=== PATIENT | male | born 1965 | race American Indian/Alaskan Native ===

== ENCOUNTER 2024-02-14 11:57 | Emergency (ER) | payer OTHER ==
[~2024-02-14] VITALS: Ht 167.6 cm; Wt 53.5 kg
[2024-02-14 12:21] LABS: BASOPHILS 1.2 % (0-2); EOSINOPHILS 1.4 % (0-6); HEMATOCRIT 38.1 % (35.0-50.0); HEMOGLOBIN 12.9 g/dL (12.0-18.0); LYMPHOCYTES 23.2 % (24-44); MCH 31.5 (27-36); MCHC 33.9 g/dl (30-36); MCV 92.8 fl (81-99); NEUTROPHILS 66.2 % (39-80); PLATELET COUNT 280 K/uL (140-440); RBC 4.11 M/ul (4.3-5.7); RDW 13.8 (10.5-15.0)
[2024-02-14] MEDS ORDERED: COREG3.125 MG PO (12:31)
[2024-02-14] MEDS ORDERED: CLOPIDOGREL75 MG PO (12:31)
[2024-02-14] MEDS ORDERED: LASIX20 MG PO (12:31)
[2024-02-14] MEDS ORDERED: IPRATROPIU0.2 MG/1 M INH (12:32)
[2024-02-14] MEDS ORDERED: PROTONIX40 M1 PO (12:33)
[2024-02-14] MEDS ORDERED: JARDIANCE10 MG PO (12:33)
[2024-02-14] MEDS ORDERED: ALDACTONE25 MG PO (12:33)
[2024-02-14] MEDS ORDERED: NITROSTAT0.4 MG SL (12:33)
[2024-02-14] MEDS ORDERED: ZESTRIL10 MG PO (12:33)
[2024-02-14 12:39] LABS: ALBUMIN/GLOBULIN RATIO 0.86 (1.1-2.4); ANION GAP 10.2 (7-21); BILIRUBIN, TOTAL 0.3 ng/dL (0.2-1.0); BUN/CREATININE RATIO 14.97 (6.0-28.6); CALCIUM 8.6 mg/dL (8.5-10.1); CREATININE, SERUM 2.07 mg/dL (0.70-1.30); MAGNESIUM 1.9 mg/dL (1.8-2.4); POTASSIUM 4.2 mmol/L (3.5-5.1); PROTEIN, TOTAL 6.5 g/dL (6.4-8.2)
[2024-02-14] MEDS ORDERED: SODIUM CHLORIDE 0.9% 1,000 ML IV PRN (12:45)
[2024-02-14] MEDS ORDERED: KETOROLAC TROMETHAMINE 15 MG/ML VIAL IV ONE (13:30)
[2024-02-14 16:39] VITALS: BP 106/78
--- NOTE | 2024-02-14 22:23 | EKG ---
[facility] [address] [facility] [place] [address] Signed Normal sinus rhythm T wave abnormality, consider inferolateral ischemia Abnormal ECG No previous ECGs available Confirmed by Quincy Nicole MD () on 02/14/2024 10:23:00 PM Electronically Signed By: QUINCY NICOLE MD 02/14/242222 PATIENT NAME: CHRIS RAPHAEL Electrocardiogram DATE OF : 69 PHYSICIAN: QUINCY NICOLE MD REPORT #: [id number] REPORT IS CONFIDENTIAL AND NOT TO BE RELEASED WITHOUT AUTHORIZATION
--- NOTE | 2024-02-14 22:24 | EKG ---
[facility] [address] [facility] [place] [address] Signed Normal sinus rhythm T wave abnormality, consider inferolateral ischemia Abnormal ECG When compared with ECG of 14-FEB-2024 11:58, T wave inversion more evident in Inferior leads Confirmed by Quincy Nicole MD () on 02/14/2024 10:24:26 PM Electronically Signed By: QUINCY NICOLE MD 02/14/242223 PATIENT NAME: CHRIS RAPHAEL Electrocardiogram DATE OF : 69 PHYSICIAN: QUINCY NICOLE MD REPORT #: [id number] REPORT IS CONFIDENTIAL AND NOT TO BE RELEASED WITHOUT AUTHORIZATION
== END 2024-02-14 16:41 | disposition home or self-care (01) ==
LOC: ED 11:57
PROVIDERS: Emergency Medicine
DX: R55 Syncope and collapse (principal); I10 Essential (primary) hypertension; J44.9 Chronic obstructive pulmonary disease, unspecified; E78.5 Hyperlipidemia, unspecified; Z88.0 Allergy status to penicillin; Z88.5 Allergy status to narcotic agent; Z79.899 Other long term (current) drug therapy
CPT/HCPCS: 36415; 71045; 80053; 83735; 84484; 85025; 93005; 93010; 96374; 99284-25; J1885; J7030

== ENCOUNTER 2024-11-07 11:23 | Inpatient (IN) | payer OTHER ==
[~2024-11-07] VITALS: Ht 167.6 cm; Wt 55.7 kg
[~2024-11-07 11:23] MED LIST: ALDACTONE25 MG PO; CLOPIDOGREL75 MG PO; COREG6.25 MG PO; IPRATROPIU0.2 MG/1 M INH; JARDIANCE10 MG PO; LASIX40 MG PO; NITROSTAT0.4 MG SL; OMEPRAZOLE20 MG PO; ZESTRIL10 MG PO
[2024-11-07 11:53] LABS: EOSINOPHILS 0.4 % (0-6); HEMATOCRIT 32.5 % (35.0-50.0); HEMOGLOBIN 10.9 g/dL (12.0-18.0); LYMPHOCYTES 14.8 % (24-44); MCHC 33.5 g/dl (30-36); MCV 86.5 fl (81-99); MONOCYTES 8.1 % (0-12); NEUTROPHILS 75.7 % (39-80); PLATELET COUNT 222 K/uL (140-440); RBC 3.76 M/ul (4.3-5.7)
[2024-11-07 12:17] LABS: ALBUMIN 2.5 g/dL (3.4-5.0); ALBUMIN/GLOBULIN RATIO 0.6 (1.1-2.4); ANION GAP 13.9 (7-21); BILIRUBIN, TOTAL 0.6 mg/dL (0.2-1.0); BUN/CREATININE RATIO 18.71 (6.0-28.6); CREATININE, SERUM 1.71 mg/dL (0.70-1.30); POTASSIUM 3.9 mmol/L (3.5-5.1); PROTEIN, TOTAL 6.7 g/dL (6.4-8.2)
[2024-11-07] MEDS ORDERED: FUROSEMIDE 100 MG/10 ML VIAL IV ONE (12:45)
[2024-11-07] MEDS ORDERED: methylPREDNISolone SOD SUCC 40 MG/ML VIAL IV SCH (13:30)
[2024-11-07] MEDS ORDERED: ondansetron HCL 4 MG/2 ML VIAL IV PRN (13:30)
[2024-11-07] MEDS ORDERED: ACETAMINOPHEN 325 MG TAB PO PRN (13:30)
[2024-11-07] MEDS ORDERED: NICOTINE 21 MG/24 HR 1 EA TDSY TD SCH (13:34)
--- NOTE | 2024-11-07 14:32 | NUR ---
PT REPORT RECIEVED FROM ER, RN. PT THEN TRASPORTED VIA STRETCHER TO ROOM 113 ON RA. PT THEN WAS ABLE TO MOVE FROM STRETCHER TO BED WITH NO ASSISTANCE. PT WAS ABLE TO REPOSITION SELF AND IS CURRENTLY IN BED AT THIS TIME. PT HAS NO CONCERNS AT THIS TIME, DENIES CHEST PAIN, AND STATES SOB HAS DECREASED AT THIS TIME CALL LIGHT IN REACH.
[2024-11-07 14:35] VITALS: BP 118/78
--- NOTE | 2024-11-07 17:15 | NUR ---
PT COVID TEST TAKEN, PT AGREEABLE AND TOLERATED WELL. PT IS SITTING UP IN BED AT THIS TIME WITH NO CURRENT COCNERNS AT THIS TIME CALL LIGHT IN REACH.
[2024-11-07 17:33] LABS: CORONAVIRUS COVID-19 AG NEGATIVE (NEGATIVE); INFLUENZA A AG NEGATIVE (NEGATIVE); INFLUENZA B AG NEGATIVE (NEGATIVE)
[2024-11-07 18:04] VITALS: BP 109/70
--- NOTE | 2024-11-07 18:24 | NUR ---
PT SITTING UP IN BED, PT REPORTED RIGHT SIDED RIB PAIN, PT LUNG SOUNDS WERE EQUAL ON BOTH SIDES, PT DID BECOME TACHYPNIC DURING THIS EPISODE THAT DID RESOLVE SHORTLY, PT SAYS IT FEELS MUSCULAR. MD BURGOS WAS CONTACTED AND GAVE VERBAL ORDER FOR MAG, BNP, AND K+, ALONG WITH LIDOCANE PATCH AND 1000mg OF TYLONOL. PT HAS NO OTHER COCNERNS AT THIS TIME VITAL SIGNS WERE STABLE DURING EPISODE.
[2024-11-07] MEDS ORDERED: LIDOCAINE HCL 4% 1 EACH PATCH TD SCH (18:30)
[2024-11-07] MEDS ORDERED: ACETAMINOPHEN 500 MG TAB PO ONE (18:30)
[2024-11-07 18:32] VITALS: BP 109/70
[2024-11-07 18:38] VITALS: BP 104/76
[2024-11-07 18:57] LABS: MAGNESIUM 1.8 mg/dL (1.8-2.4)
[2024-11-07] MEDS ORDERED: ALBUTEROL SULFATE 0.083% 3 ML VIAL INH PRN (19:15)
[2024-11-07] MEDS ORDERED: MAGNESIUM SULFATE 2 GM/50 ML BAG IV ONE (19:45)
[2024-11-07] MEDS ORDERED: POTASSIUM CHLORIDE 10 MEQ TABCR PO ONE (19:45)
[2024-11-07] MEDS ORDERED: IPRATROPIUM BROMIDE 2.5 ML VIAL INH SCH (20:00)
--- NOTE | 2024-11-07 20:11 | NUR ---
CHRIS IS A CURRENT SMOKER. HIS IS ABLE TO USE THE CORNET LEVEL W/O DIFFICULTY OR INCREASED S/S OF RESPIRATORY DISTRESS. CHRIS IS CURRENTLY ON ROOM AIR.
[2024-11-07 20:19] VITALS: BP 116/74
[2024-11-07 20:20] VITALS: BP 116/74
--- NOTE | 2024-11-07 20:32 | NUR ---
sandwich box given on requests, ate 100%. on room air, RT in room, cpox on at bedside and coronot used and return demonstration done for RT, neb given. calm, cooperative, received po K and IV Mag infusing., Bed alrm on for helena
[2024-11-07] MEDS ORDERED: LIDOCAINE PATCH REMOVAL 1 EA TD SCH (21:00)
--- NOTE | 2024-11-07 23:11 | NUR ---
AWAKE, WATCHNG TV, NO C/OPAIN, VOIDING QS YELLOW URINE, USING URINAL. ON ROOM AIR, CPOX IN PLCE
[2024-11-08] VITALS (9 sets, daily range): BP systolic 108–130; BP diastolic 70–85
--- NOTE | 2024-11-08 01:09 | NUR ---
RESTING, EYES CLOSED, NO SS/X DISTRESS, CPOX ON AT BEDSIDE. EYES CLOSED, REPOSITIONS SELF IN BED, VOIDING QS YELLOW URINE, USES URINAL
--- NOTE | 2024-11-08 02:31 | NUR ---
AWAKENS EASILY. ON ROOM AIR, CPPOX AT BEDSIDE. CONTINUES TO DECLINE TO HAVE LIDOCAINE PATCH REMOVED FROM R RIB AREA. "I FEEL BETTER, BUT IM AFRAID THAT IF I TAKE IT OFF IT WILL START HURTING AGAIN". PUDING AND JUICE GIVEN ON REQUESTS. REPOSITIONS SELF INBED, COOPERATIVE WITH ASSESSMENT.
--- NOTE | 2024-11-08 03:27 | NUR ---
RESTING, EYES CLOSED, NO S/SX DISTRESS ON ROOM AIR, CPOX AT BEDSIDE, SATS WNL. TURNS AND REPOSITIONS SELF IN BED
[2024-11-08 05:26] LABS: BASOPHILS 0.2 % (0-2); HEMOGLOBIN 12.9 g/dL (12.0-18.0); LYMPHOCYTES 10.3 % (24-44); MCH 28.8 (27-36); MCHC 33.9 g/dl (30-36); MCV 84.9 fl (81-99); MONOCYTES 2.2 % (0-12); NEUTROPHILS 87.3 % (39-80); PLATELET COUNT 251 K/uL (140-440); RBC 4.47 M/ul (4.3-5.7)
[2024-11-08 05:39] LABS: ANION GAP 12.8 (7-21); BUN/CREATININE RATIO 21.69 (6.0-28.6); CALCIUM 8.6 mg/dL (8.5-10.1); CREATININE, SERUM 1.89 mg/dL (0.70-1.30); MAGNESIUM 2.4 mg/dL (1.8-2.4); POTASSIUM 3.8 mmol/L (3.5-5.1)
--- NOTE | 2024-11-08 05:42 | NUR ---
AWAKENS EASILY, NO C/O SX DISTRESS, ON ROOM AIR. CPOX AT BEDSIDE. NO COUGH AT THIST STACY, SLIGHT SOB WITH EXERTION WHEN TALKING AND REPOSITIONING, SATS NO HCANGES 98-100%.TURNS AND REPOSITIONS SELF IN BED. 55.7KG BED
--- NOTE | 2024-11-08 07:00 | NUR ---
Pt report received from ESTHER Frias. Pt is currently "ambulating" the hallway in his wheelchair. Pt states he "feels a little tight" and reports some discomfort in his ribs on both sides. States he still has the lidocaine patch on his right side and agrees to try hot packs at this time, which were provided to him. Pt is back in his bed at this time, call light in reach.
--- NOTE | 2024-11-08 07:43 | NUR ---
HOURLY ROUNDING. PATIENT WAS SEEN DOING 3 LAPS AROUND THE NURSE STATIONE IN WHEEL CHAIR (PERSONAL) CHAIR. PATIENT THEN WENT IN HIS ROOM, AND TRANSFERED HIMSELF FROM WHEEL CHAIR TO BED. NO ASSISTANCE WAS NEEDED. PATIENT REQUESTED ORANGE JUICE. ORANGE JUICE HAS BEEN GIVEN
[2024-11-08] MEDS ORDERED: ALBUTEROL/IPRATROPIUM 3 ML NEB INH SCH (08:00)
--- NOTE | 2024-11-08 08:58 | NUR ---
UR CLINICAL REVIEW: [facility] [place] [facility] REVIEW MEETS INPT FOR CHF BASIC DMAP INPT 11/07/24 @ 1326 ORDER MATCHES REG NO AUTH REQUIRED PER DMAP GUIDELINES DISCHARGE TO HOME WHEN STABLE ANTICIPATE DC IN 24-48 HRS
[2024-11-08] MEDS ORDERED: PANTOPRAZOLE SODIUM 40 MG TABEC PO SCH (09:00)
[2024-11-08] MEDS ORDERED: ENOXAPARIN SODIUM 40 MG/0.4 ML SYR SUB-Q SCH (09:00)
[2024-11-08] MEDS ORDERED: ALBUTEROL2.5 MG/3 M INH (09:03)
[2024-11-08] MEDS ORDERED: SYMBICORT 80-10.2 GM INH (09:03)
[2024-11-08] MEDS ORDERED: ROSUVASTATIN CA20 MG PO (09:07)
[2024-11-08] MEDS ORDERED: NEURONTIN100 MG PO (09:08)
[2024-11-08] MEDS ORDERED: ADULT ASPIRIN R81 MG PO (09:09)
--- NOTE | 2024-11-08 09:55 | NUR ---
MED REC COMPLETE
[2024-11-08] MEDS ORDERED: ASPIRIN 81 MG TABEC PO SCH (09:59)
[2024-11-08] MEDS ORDERED: FUROSEMIDE 100 MG/10 ML VIAL IV ONE (10:00)
[2024-11-08] MEDS ORDERED: CYCLOBENZAPRINE HCL 10 MG TAB PO PRN (10:00)
[2024-11-08] MEDS ORDERED: POTASSIUM CHLORIDE 10 MEQ TABCR PO ONE (10:00)
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
--- NOTE | 2024-11-08 10:36 | NUR ---
PATIENT CALLED AND WANTED TO GET BACK INTO BED. THIS TIRE BUILDER HEAVY SERVICE IN TO ASSIST. PATIENT TRANSFERED TO BED FROM CHAIR, SBA PIVOT TRANSFER. CALL LIGHT IN REACH. BED ALARM ON. NO FURTHER NEEDS AT THIS TIME.
--- NOTE | 2024-11-08 11:48 | NUR ---
HOURLY ROUNDING. PATIENT TRANSFERED FROM WHEEL CHAIR TO BED. HE MENTONED NEEDING ASSISTANCE TO DO PAPER WORK THAT WAS GIVEN FROM CASE MANAGMENT, CASE MANAGEMENT HAS BEEN ALERTED. NO FURTHER REQUEST FROM PATIENT AT THIS TIME
[2024-11-08] MEDS ORDERED: PHARMACY RENAL DOSE ADJUSTMENT 1 DOSE MISC PO SCH (12:00)
--- NOTE | 2024-11-08 13:46 | NUR ---
URINAL EMPTIED FOR 250ML OF URINE.
--- NOTE | 2024-11-08 14:00 | EKG ---
[facility] [address] [place] [address] Signed Normal sinus rhythm Left anterior fascicular block Minimal voltage criteria for LVH, may be normal variant ( [place] product ) Nonspecific T wave abnormality Prolonged QT Abnormal ECG When compared with ECG of 14-FEB-2024 13:19, Left anterior fascicular block is now present T wave inversion no longer evident in Inferior leads Nonspecific T wave abnormality has replaced inverted T waves in Lateral leads QT has lengthened Confirmed by Pao Mcneill MD ([id number]) on 11/08/2024 2:00:07 PM Electronically Signed By: PAO MCNEILL MD 11/08/24 1400 PATIENT NAME: CHRIS RAPHAEL Electrocardiogram DATE OF : 69 PHYSICIAN: PAO MCNEILL MD REPORT #: [id number] REPORT IS CONFIDENTIAL AND NOT TO BE RELEASED WITHOUT AUTHORIZATION
--- NOTE | 2024-11-08 15:15 | NUR ---
VISITED DURING SPIRITUAL CARE ROUNDS. PT APPEARED TO BE SLEEPING. DID NOT DISTURB. PROVIDED PRAYER.
--- NOTE | 2024-11-08 19:05 | NUR ---
REPORT RECEIVED FROM ALFRED SANTANA. pt RESTING IN THE BED. BOARD UPDATED. pt DENIES ANY OTHER NEEDS AT THIS TIME. CALL LIGHT WITHIN REACH.
[2024-11-08] MEDS ORDERED: LORazepam 1 MG TAB PO PRN (21:15)
--- NOTE | 2024-11-08 21:15 | NUR ---
ASSESSMENT DONE. LUNG SOUNDS CLEAR. SHEDULED MEDS ADMINISTERED. SNACK PROVIDED. WATER REFESHED. IV ASSESSED, WNL. pt DENIES ANY OTHER NEEDS AT THIS TIME. CALL LIGHT WITHIN REACH.
--- NOTE | 2024-11-08 23:26 | NUR ---
pt RESTING IN THE BED WITH EYES CLOSED. RR EVEN AND UNLABORED. CALL LIGHT WITHIN REACH.
--- NOTE | 2024-11-09 01:10 | NUR ---
pt RESTING IN THE BED WITH EYES CLOSED. RR EVEN AND UNLABORED. CALL LIGHT WITHIN REACH.
--- NOTE | 2024-11-09 03:01 | NUR ---
pt RESTING IN THE BED WITH EYES CLOSED. RR EVEN AND UNLABORED. CALL LIGHT WITHIN REACH.
[2024-11-09 05:12] VITALS: BP 125/82
[2024-11-09 05:15] VITALS: BP 125/82
[2024-11-09 05:20] LABS: BASOPHILS 0.1 % (0-2); HEMATOCRIT 38.3 % (35.0-50.0); LYMPHOCYTES 3.5 % (24-44); MCH 28.5 (27-36); MCHC 33.8 g/dl (30-36); MCV 84.3 fl (81-99); MONOCYTES 2.1 % (0-12); NEUTROPHILS 94.3 % (39-80); PLATELET COUNT 309 K/uL (140-440); RBC 4.54 M/ul (4.3-5.7); RDW 14.7 (10.5-15.0)
--- NOTE | 2024-11-09 05:29 | NUR ---
IN RM TO DO ASSESSMENT AND VITAL SIGNS. WATER REFRESHED. LUNG SOUNDS ARE CLEAR. pt DENIES ANY OTHER NEEDS AT THIS TIME. CALL LIGHT WITHIN REACH.
[2024-11-09 05:42] LABS: ANION GAP 11.4 (7-21); BUN/CREATININE RATIO 23.68 (6.0-28.6); CALCIUM 8.3 mg/dL (8.5-10.1); CREATININE, SERUM 1.9 mg/dL (0.70-1.30); MAGNESIUM 2.1 mg/dL (1.8-2.4); POTASSIUM 4.4 mmol/L (3.5-5.1)
--- NOTE | 2024-11-09 07:15 | NUR ---
MORNING REPORT RECIEVED FROM ESTHER MEJIA. PT LAYING IN BED WITH EYES CLSOED CHEST RISE EQUAL BILAT. PT HAS CALL LIGHT IN REACH AT THIS TIME.
--- NOTE | 2024-11-09 08:24 | NUR ---
PT SITTING UP IN WC EATING BREAKFAST. PT RECIEVED MORNING MEDICATIONS. PT WAS THEN TAKEN BY IMAGING FOR CHEST XRAY. PT SHALL RETURN TO ROOM ONCE FINISHED.
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
[2024-11-09] MEDS ORDERED: PREDNISONE20 MG PO (09:28)
--- NOTE | 2024-11-09 09:49 | NUR ---
PT RETURNED FROM IMAGING AND IS CURRENTLY IN ROOM IN WC. PT ASKED IF HE COULD ROLL AROUND THE MEDSURGE FLOOR IN HIS WC AND WAS TOLD THATS FINE. PT DC PAPER WORK IN PROGRESS AT THIS TIME. PT HAS NO COCNERNS.
--- NOTE | 2024-11-09 10:31 | NUR ---
PT DC INSTRUCTIONS AND EDUCATION GIVEN VERBALLY TO PT. PT HAS NO CURRENT CONCERNS AT THIS TIME AND ALL QUESTIONS ANSWERED AT THIS TIME. PT IS CURRENTLY SITTING IN WC WITH CLERICAL ASSISTANT PRESENT IN ROOM. PT PAPER WORK GIVEN AND PLACED IN GREEN Bee There BAG.
--- NOTE | 2024-11-09 10:38 | NUR ---
SPOKE WITH CINDY AT WHEELCHAIR VAN AND SCHEDULED TO PICK PATIENT UP IN 20 MINUTES TO TRANSPORT TO HOME.
[2024-11-09 10:39] VITALS: BP 137/89
== END 2024-11-09 10:40 | disposition home or self-care (01) | DRG 190 ==
LOC: ED 11:23 → MS 13:26
PROVIDERS: Emergency Medicine; ADMIT Student in an Organized Health Care Education/Training Program; ATTEND Student in an Organized Health Care Education/Training Program
DX: J44.1 Chronic obstructive pulmonary disease with (acute) exacerbation (principal); I50.23 Acute on chronic systolic (congestive) heart failure; I11.0 Hypertensive heart disease with heart failure; I25.10 Atherosclerotic heart disease of native coronary artery without angina pectoris; K21.9 Gastro-esophageal reflux disease without esophagitis; F17.210 Nicotine dependence, cigarettes, uncomplicated; I73.9 Peripheral vascular disease, unspecified; F12.90 Cannabis use, unspecified, uncomplicated; Z95.0 Presence of cardiac pacemaker; Z88.0 Allergy status to penicillin; Z89.611 Acquired absence of right leg above knee; I25.2 Old myocardial infarction; Z79.899 Other long term (current) drug therapy; Z79.811 Long term (current) use of aromatase inhibitors; Z86.73 Personal history of transient ischemic attack (TIA), and cerebral infarction without residual deficits; Z86.79 Personal history of other diseases of the circulatory system; Z88.5 Allergy status to narcotic agent
CPT/HCPCS: 36415; 71045; 71046; 80048; 80053; 83735; 83880; 84132; 84484; 85025; 93005; 93010; 93306; 94640; 94667; 94668; 94762; 97161; 97165; 99407; A9270; J1650; J1938; J2919; J3475